=== PATIENT | female | born 1950 | race Caucasian/White ===

== ENCOUNTER → 2022-07-04 13:58 | Outpatient (BNVA) | payer MEDICARE, SELFPAY | PROVIDERS: PCP Family Medicine; Visit Provider Student in an Organized Health Care Education/Training Program | DX: M05.79 Rheumatoid arthritis with rheumatoid factor of multiple sites without organ or systems involvement (principal); M35.01 Sjogren syndrome with keratoconjunctivitis; Z11.59 Encounter for screening for other viral diseases; Z79.631 Long term (current) use of antimetabolite agent; Z11.7 Encounter for testing for latent tuberculosis infection | CPT/HCPCS: 99202 ==

== ENCOUNTER → 2022-09-16 09:01 | Outpatient (BNVA) | payer MEDICARE, SELFPAY | PROVIDERS: PCP Family Medicine; Visit Provider Student in an Organized Health Care Education/Training Program | DX: M05.79 Rheumatoid arthritis with rheumatoid factor of multiple sites without organ or systems involvement (principal); R06.02 Shortness of breath; Z79.631 Long term (current) use of antimetabolite agent; Z71.85 Encounter for immunization safety counseling | CPT/HCPCS: 99212 ==

== ENCOUNTER 2023-01-23 09:07 | Outpatient (AMB) | payer MEDICARE, SELFPAY ==
--- NOTE | 2023-01-23 09:13 | MHC.OFFVIS ---
Intake Vital Signs 01/23/23 09:14 Height 5 ft 5 in Weight 199 lb 8.293 oz BMI 33.2 BP 126/70 Blood Pressure Location Rt brachial Position Sitting Pulse 77 Pulse Source Pulse Oximeter Temp 97.3 F Temp Source Skin Pulse Oximetry (%) 98 Intake Visit Reasons: RA Intake Note: Pt seen today for 4 month RA follow up. Reports pain in knees, ankles and toes, pain progresses as day goes on. Corrosion Prevention Metal Sprayer Required: No Accompanied by: Self / Same As Patient Allergies ibuprofen Allergy (Intermediate, Verified 01/23/23 09:16) stomach ulcers leflunomide Allergy (Intermediate, Verified 01/23/23 09:16) neuropathy sulfasalazine Allergy (Intermediate, Verified 01/23/23 09:16) Fever Medication List - Last Reconciled 01/23/23 by Roque Barnhart MD amlodipine 2.5 mg PO DAILY betamethasone dipropionate 0.05% 1 appl topical DAILY PRN cholecalciferol (vitamin D3) 50 mcg PO DAILY cyclosporine 0.05% 1 drp ophthalmic (eye) Q12H folic acid 1 mg PO DAILY hydrochlorothiazide 12.5 mg PO DAILY levothyroxine 50 mcg PO DAILY lisinopril 40 mg PO DAILY methotrexate sodium 15 mg (6 x 2.5 mg) PO QWEEK multivitamin 1 tab PO DAILY omeprazole 20 mg PO DAILY pravastatin 40 mg PO DAILY spironolactone 25 mg PO DAILY HPI HPI Comments History of Present Illness Details 72-year-old female with seropositive RA returns for follow-up. She was evaluated by a logistics analyst for her left knee swollen. Arthrocentesis was performed and according to patient her doctor told her she did not have any signs of rheumatoid arthritis, gout or pseudogout. Steroid injection was done which gave her about 2 weeks relief. She had a left knee MRI done which showed a torn medial meniscus, she has an appointment with Orthopedics next month. Patient states that she feels well otherwise. States that the shortness of breath she complained of last visit self-resolved. Denies any cough. Initial history This is a 71-year-old female with a past medical history of rheumatoid arthritis who presents for evaluation. Her previous focuser left the practice. She was diagnosed in 2014. Symptoms mostly involved her ankles and feet. Per patient she has developed deformed left foot toes over the years. She was on multiple DMARDs (please see assessment) she was on leflunomide initially and did well with it however she developed neuropathy of her feet. She was evaluated by a neurologist and had an EMG which was normal and she was told she has a small fiber neuropathy. Neurontin did not help. Leflunomide was discontinued manage her neuropathy improved. She could not tolerate sulfasalazine. Cannot take Plaquenil due to retinal issues. She has been doing fairly well on methotrexate 4 tabs weekly. She was never on a higher dose of methotrexate. Patient stated that she had a UTI with fever about a month ago and was prescribed Levaquin with improvement of her UTI however she developed bilateral knee tendinitis which is slowly improving. Patient states that her RA have almost always affected her ankles, feet, toes, and knees. She has stiffness of her knees when she stands up after sitting down for some time. She has morning stiffness of her ankles and feet lasting a few minutes improved with walking. Denies any significant joint swelling. She stated she has had dry eyes for many years. She was on Restasis eyedrops for some time, currently she only uses artificial tears. She has intermittent dry mouth but it does not bother her too much. No history of Raynaud's. No history of DVT/PE. 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 Card Denies dyspnea Resp Denies cough and Denies dyspnea Musc Reports arthralgias, Reports joint swelling and Reports stiffness Physical Exam Vital Signs: Last Vital Signs Temp 97.3 F 01/23/23 09:14 Pulse 77 01/23/23 09:14 BP 126/70 01/23/23 09:14 Pulse Ox 98 01/23/23 09:14 BMI result Body Mass Index 33.2 Const General: cooperative and healthy appearing Nutritional Appearance: obese Orientation/consciousness: patient oriented x3 Limitations: no limitations HEENT Head: Yes normocephalic Mouth: moist mucous membranes Resp Effort & Inspection: normal respiratory effort and able to speak in complete sentences Auscultation: clear to auscultation bilaterally Cardio Rate: regular rate Rhythm: regular rhythm Heart sounds: S1 normal heart sound present and S2 normal heart sound present GI Inspection: No distended Palpation (GI): Soft to palpation and nontender Neuro General: patient oriented x3 Extrem Other: Osteoarthritic changes of both hands with prominent Etta's, Heberden's nodes and squaring of bilateral CMCs joints. No tender joints Normal nailfold capillaroscopy Left knee warmth and small effusion. + crepitus. Right knee pain with full flexion Left foot deformity with hammertoes No MTP joint tenderness bilaterally Negative MTP squeeze test bilaterally Results Reviewed Results Reviewed: Labs in 07/24 RF ++ YUE/SSA/SSB/C3/C4/Kandy-1/Sm/ESL PROFESSOR/CCP all negative/normal Hepatitis panel and T spot negative Labs from 01/2023 Normal CBC, CMP, ESR, CRP Uric acid 7.0 Assessment & Plan Assessment & Plan (1) Rheumatoid arthritis: Comment: Onset 2014 +RF -ve CCP leflunomide 2014, did well then stopped due to feet neuropathy, neuropathy improved after stopping Can not take Plaquenil due to retinal issues Could not tolerate sulfasalazine On methotrexate since 2020 10 mg , advanced to 20 mg weekly, reduced to 15 mg 09/2022 due to fatigue. effective Code(s): M06.9 - Rheumatoid arthritis, unspecified Qualifiers: Rheumatoid arthritis location: multiple sites Rheumatoid factor presence: with rheumatoid factor Qualified Code(s): M05.79 - Rheumatoid arthritis with rheumatoid factor of multiple sites without organ or systems involvement Plan: 72-year-old female with seropositive RA who presents for follow-up. Patient is in remission on methotrexate 15 mg weekly and folic acid 1 mg daily. Continue current meds. Will consider lowering methotrexate dose next visit Labs in 3 months and before next visit in 6 months infectious screening hepatitis panel and T spot-20 23 (2) skilled nursing methotrexate user: Code(s): Z79.631 - skilled nursing (current) use of antimetabolite agent Plan: Side effects of methotrexate were discussed with the patient in detail including oral ulcers, elevated LFTs, abdominal discomfort, and possible pancytopenia is. Will monitor patient for side effects with frequent lab work. Advised patient to take folic acid daily to prevent complications of methotrexate. (3) Shortness of breath: Code(s): R06.02 - Shortness of breath Plan: Shortness of breath self-resolved without any specific treatment (4) Screening for osteoporosis: Code(s): Z13.820 - Encounter for screening for osteoporosis Plan: Mentions that she had a bone density scan 2-3 years ago and it was unremarkable. Will consider repeating DEXA scan next visit. (5) Degenerative tear of left medial meniscus: Code(s): M23.204 - Derangement of unspecified medial meniscus due to old tear or injury, left knee Plan: Has a follow-up appointment with Orthopedic next month Plan I spent 29 minutes reviewing patient's chart, evaluating patient, ordering diagnostic workup, counseling patient and documenting in the chart Orders: Orders Comprehensive Met. Panel 6 Months Z79.631 - skilled nursing (current) use of antimetabolite agent C Reactive Protein 6 Months Z79.631 - buttermaker (current) use of antimetabolite agent Erythrocyte Sedimentation Rate 6 Months Z79.631 - skilled nursing (current) use of antimetabolite agent C Reactive Protein 3 Months M06.9 - Rheumatoid arthritis, unspecified Complete Blood Count Auto Diff 6 Months Z79.631 - skilled nursing (current) use of antimetabolite agent Complete Blood Count Auto Diff 3 Months M06.9 - Rheumatoid arthritis, unspecified Comprehensive Met. Panel 3 Months M06.9 - Rheumatoid arthritis, unspecified Erythrocyte Sedimentation Rate 3 Months M06.9 - Rheumatoid arthritis, unspecified Coding Level of Care Code Est Pt Level 4 (23880) Diagnoses Rheumatoid arthritis involving multiple sites with positive rheumatoid factor M05.79 Rheumatoid arthritis location: multiple sites Rheumatoid factor presence: with rheumatoid factor skilled nursing methotrexate user Z79.631 Shortness of breath R06.02 Screening for osteoporosis Z13.820 Degenerative tear of left medial meniscus M23.204
[2023-01-23 09:14] VITALS: BP 126/70; PULSE 77; TEMP 36.3; O2SAT 98; BMI 33.2
== END 2023-01-23 09:48 | disposition home or self-care (01) ==
PROVIDERS: PCP Family Medicine; Visit Provider Student in an Organized Health Care Education/Training Program
DX: M05.79 Rheumatoid arthritis with rheumatoid factor of multiple sites without organ or systems involvement (principal); Z79.631 Long term (current) use of antimetabolite agent; R06.02 Shortness of breath; Z13.820 Encounter for screening for osteoporosis; M23.204 Derangement of unspecified medial meniscus due to old tear or injury, left knee
CPT/HCPCS: 99214

== ENCOUNTER → 2023-01-23 09:07 | Outpatient (BNVA) | payer MEDICARE, SELFPAY | PROVIDERS: Visit Provider Student in an Organized Health Care Education/Training Program | DX: M05.79 Rheumatoid arthritis with rheumatoid factor of multiple sites without organ or systems involvement (principal); R06.02 Shortness of breath; M23.204 Derangement of unspecified medial meniscus due to old tear or injury, left knee; Z79.631 Long term (current) use of antimetabolite agent | CPT/HCPCS: 99212 ==

== ENCOUNTER 2023-07-23 09:22 | Outpatient (AMB) | payer MEDICARE, SELFPAY ==
--- NOTE | 2023-07-23 09:34 | A.OFFVIS_ITS ---
Intake Vital Signs 07/23/23 09:37 Height 5 ft 5 in Weight 197 lb 5.019 oz BMI 32.8 BP 134/62 Blood Pressure Location Rt brachial Position Sitting Pulse 62 Pulse Source Pulse Oximeter Pulse Oximetry (%) 97 Oxygen Delivery Method Room Air Intake Visit Reasons: RA/CONFIRMED Intake Note: Patient last seen 01/23/23 presents today for follow up and test results. Generator Man Required: No Accompanied by: Self / Same As Patient Allergies ibuprofen Allergy (Intermediate, Verified 07/23/23 09:42) stomach ulcers leflunomide Allergy (Intermediate, Verified 07/23/23 09:42) neuropathy sulfasalazine Allergy (Intermediate, Verified 07/23/23 09:42) Fever Medication List - Last Reconciled 07/23/23 by Roque Barnhart MD betamethasone dipropionate 0.05% 1 appl topical DAILY PRN cholecalciferol (vitamin D3) 50 mcg PO DAILY cyclosporine 0.05% 1 drp ophthalmic (eye) Q12H folic acid 1 mg PO DAILY NS levothyroxine 50 mcg PO DAILY lisinopril 40 mg PO DAILY methotrexate sodium 15 mg (6 x 2.5 mg) PO QWEEK multivitamin 1 tab PO DAILY omeprazole 20 mg PO DAILY pravastatin 40 mg PO DAILY spironolactone 25 mg PO DAILY HPI HPI Comments History of Present Illness Details 72-year-old female with seropositive RA returns for follow-up. She is on methotrexate 15 mg weekly and folic acid 1 mg daily. She states that she has been doing fairly well overall. About a month ago patient reduce her methotrexate to 5 tabs weekly, for about a month, she did physical therapy and did some stretching exercises for both her knees, the next day both knees became swollen, she can not tell whether this was related to physical activity versus lowering methotrexate dose. She went back to 15 mg weekly. Her left knee continues to be symptomatic and she will see an orthopedic surgeon very soon to consider left knee replaced Initial history This is a 71-year-old female with a past medical history of rheumatoid arthritis who presents for evaluation. Her previous supervisor show operations left the practice. She was diagnosed in 2014. Symptoms mostly involved her ankles and feet. Per patient she has developed deformed left foot toes over the years. She was on multiple DMARDs (please see assessment) she was on leflunomide initially and did well with it however she developed neuropathy of her feet. She was evaluated by a neurologist and had an EMG which was normal and she was told she has a small fiber neuropathy. Neurontin did not help. Leflunomide was discontinued manage her neuropathy improved. She could not tolerate sulfasalazine. Cannot take Plaquenil due to retinal issues. She has been doing fairly well on methotrexate 4 tabs weekly. She was never on a higher dose of methotrexate. Patient stated that she had a UTI with fever about a month ago and was prescribed Levaquin with improvement of her UTI however she developed bilateral knee tendinitis which is slowly improving. Patient states that her RA have almost always affected her ankles, feet, toes, and knees. She has stiffness of her knees when she stands up after sitting down for some time. She has morning stiffness of her ankles and feet lasting a few minutes improved with walking. Denies any significant joint swelling. She stated she has had dry eyes for many years. She was on Restasis eyedrops for some time, currently she only uses artificial tears. She has intermittent dry mouth but it does not bother her too much. No history of Raynaud's. No history of DVT/PE. 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[employer] [facility] [place] Reports arthralgias and Reports stiffness Physical Exam Vital Signs: Last Vital Signs Pulse 62 07/23/23 09:37 BP 134/62 07/23/23 09:37 Pulse Ox 97 07/23/23 09:37 Oxygen Delivery Method Room Air 07/23/23 09:37 BMI result Body Mass Index 32.8 Const General: cooperative and healthy appearing Nutritional Appearance: obese Orientation/consciousness: patient oriented x3 Limitations: no limitations HEENT Head: Yes normocephalic Mouth: moist mucous membranes Resp Effort & Inspection: normal respiratory effort and able to speak in complete sentences Auscultation: clear to auscultation bilaterally Cardio Rate: regular rate Rhythm: regular rhythm Heart sounds: S1 normal heart sound present and S2 normal heart sound present GI Inspection: No distended Palpation (GI): Soft to palpation and nontender Neuro General: patient oriented x3 Extrem Other: Osteoarthritic changes of both hands with prominent Etta's, Heberden's nodes and squaring of bilateral CMCs joints. No tender joints Normal nailfold capillaroscopy Left knee warmth and small effusion. + crepitus. Right knee pain with full flexion Left foot deformity with hammertoes No MTP joint tenderness bilaterally Negative MTP squeeze test bilaterally Results Reviewed Results Reviewed: Labs in 07/24 RF ++ YUE/SSA/SSB/C3/C4/Kandy-1/Sm/KRAFT MILL OPERATOR/CCP all negative/normal Hepatitis panel and T spot negative Labs from 01/2023 Normal CBC, CMP, ESR, CRP Uric acid 7.0 Assessment & Plan Assessment & Plan (1) Rheumatoid arthritis: Comment: Onset 2014 +RF -ve CCP leflunomide 2014, did well then stopped due to feet neuropathy, neuropathy improved after stopping Can not take Plaquenil due to retinal issues Could not tolerate sulfasalazine On methotrexate since 2020 10 mg , advanced to 20 mg weekly, reduced to 15 mg 09/2022 due to fatigue. effective Code(s): M06.9 - Rheumatoid arthritis, unspecified Qualifiers: Rheumatoid arthritis location: multiple sites Rheumatoid factor presence: with rheumatoid factor Qualified Code(s): M05.79 - Rheumatoid arthritis with rheumatoid factor of multiple sites without organ or systems involvement Plan: 72-year-old female with seropositive RA who presents for follow-up. Patient is in remission on methotrexate 15 mg weekly and folic acid 1 mg daily. Continue current meds. Will consider lowering methotrexate in the future. Labs in 3 months and before next visit in 6 months infectious screening hepatitis panel and T spot-20 (2) joint terminal attack controller methotrexate user: Code(s): Z79.631 - residential (current) use of antimetabolite agent Plan: Side effects of methotrexate were discussed with the patient in detail including oral ulcers, elevated LFTs, abdominal discomfort, and possible pancytopenia is. Will monitor patient for side effects with frequent lab work. Advised patient to take folic acid daily to prevent complications of methotrexate. (3) Screening for osteoporosis: Code(s): Z13.820 - Encounter for screening for osteoporosis Plan: Mentions that she had a bone density scan 2-3 years ago and it was unremarkable. She states that she will be evaluated for a Medicare wellness visit soon and a DEXA scan will be discussed (4) Degenerative tear of left medial meniscus: Code(s): M23.204 - Derangement of unspecified medial meniscus due to old tear or injury, left knee Plan: States that she has medial meniscus tear as well as left knee osteoarthritis, she states that she will be evaluated by a surgeon soon for knee replaced Plan I spent 29 minutes reviewing patient's chart, evaluating patient, ordering diagnostic workup, counseling patient and documenting in the chart Orders: Orders Comprehensive Met. Panel Today M06.9 - Rheumatoid arthritis, unspecified, Z79.631 - residential (current) use of antimetabolite agent C Reactive Protein Today M06.9 - Rheumatoid arthritis, unspecified, Z79.631 - residential (current) use of antimetabolite agent Complete Blood Count Auto Diff Today M06.9 - Rheumatoid arthritis, unspecified, Z79.631 - joint terminal attack controller (current) use of antimetabolite agent Complete Blood Count Auto Diff 10/21/23 M06.9 - Rheumatoid arthritis, unspecified, Z79.631 - residential (current) use of antimetabolite agent Complete Blood Count Auto Diff 01/19/24 M06.9 - Rheumatoid arthritis, unspecified, Z79.631 - joint terminal attack controller (current) use of antimetabolite agent Complete Blood Count Auto Diff 04/18/24 M06.9 - Rheumatoid arthritis, unspecified, Z79.631 - joint terminal attack controller (current) use of antimetabolite agent Comprehensive Met. Panel Today M06.9 - Rheumatoid arthritis, unspecified, Z79.631 - joint terminal attack controller (current) use of antimetabolite agent Comprehensive Met. Panel 10/21/23 M06.9 - Rheumatoid arthritis, unspecified, Z79.631 - joint terminal attack controller (current) use of antimetabolite agent Comprehensive Met. Panel 01/19/24 M06.9 - Rheumatoid arthritis, unspecified, Z79.631 - residential (current) use of antimetabolite agent Comprehensive Met. Panel 04/18/24 M06.9 - Rheumatoid arthritis, unspecified, Z79.631 - joint terminal attack controller (current) use of antimetabolite agent Erythrocyte Sedimentation Rate 10/21/23 M06.9 - Rheumatoid arthritis, unspecified, Z79.631 - residential (current) use of antimetabolite agent Erythrocyte Sedimentation Rate 04/18/24 M06.9 - Rheumatoid arthritis, unspecified, Z79.631 - joint terminal attack controller (current) use of antimetabolite agent Complete Blood Count Auto Diff Today M06.9 - Rheumatoid arthritis, unspecified, Z79.631 - joint terminal attack controller (current) use of antimetabolite agent Erythrocyte Sedimentation Rate Today M06.9 - Rheumatoid arthritis, unspecified, Z79.631 - residential (current) use of antimetabolite agent C Reactive Protein Today M06.9 - Rheumatoid arthritis, unspecified, Z79.631 - residential (current) use of antimetabolite agent C Reactive Protein 10/21/23 M06.9 - Rheumatoid arthritis, unspecified, Z79.631 - residential (current) use of antimetabolite agent C Reactive Protein 01/19/24 M06.9 - Rheumatoid arthritis, unspecified, Z79.631 - joint terminal attack controller (current) use of antimetabolite agent C Reactive Protein 04/18/24 M06.9 - Rheumatoid arthritis, unspecified, Z79.631 - residential (current) use of antimetabolite agent Erythrocyte Sedimentation Rate Today M06.9 - Rheumatoid arthritis, unspecified, Z79.631 - residential (current) use of antimetabolite agent Erythrocyte Sedimentation Rate 01/19/24 M06.9 - Rheumatoid arthritis, unspecified, Z79.631 - residential (current) use of antimetabolite agent Coding Level of Care Code Est Pt Level 4 (53648) Diagnoses Rheumatoid arthritis involving multiple sites with positive rheumatoid factor M05.79 Rheumatoid arthritis location: multiple sites Rheumatoid factor presence: with rheumatoid factor joint terminal attack controller methotrexate user Z79.631 Screening for osteoporosis Z13.820 Degenerative tear of left medial meniscus M23.204
[2023-07-23 09:37] VITALS: BP 134/62; PULSE 62; O2SAT 97; BMI 32.8
== END 2023-07-23 10:15 | disposition home or self-care (01) ==
PROVIDERS: PCP Family Medicine; Visit Provider Student in an Organized Health Care Education/Training Program
DX: M05.79 Rheumatoid arthritis with rheumatoid factor of multiple sites without organ or systems involvement (principal); Z79.631 Long term (current) use of antimetabolite agent; Z13.820 Encounter for screening for osteoporosis; M23.204 Derangement of unspecified medial meniscus due to old tear or injury, left knee
CPT/HCPCS: 99214

== ENCOUNTER → 2023-07-23 09:22 | Outpatient (BNVA) | payer MEDICARE, SELFPAY | PROVIDERS: PCP Family Medicine; Visit Provider Student in an Organized Health Care Education/Training Program | DX: M05.79 Rheumatoid arthritis with rheumatoid factor of multiple sites without organ or systems involvement (principal); M23.204 Derangement of unspecified medial meniscus due to old tear or injury, left knee; Z13.820 Encounter for screening for osteoporosis; Z79.631 Long term (current) use of antimetabolite agent | CPT/HCPCS: 99212 ==

== ENCOUNTER 2024-03-15 09:24 | Outpatient (AMB) | payer MEDICARE, SELFPAY ==
--- NOTE | 2024-03-15 09:30 | A.OFFVIS_ITS ---
Vital Signs 03/15/24 09:36 Height 5 ft 5 in Weight 205 lb 14.588 oz BMI 34.3 BP 115/64 Blood Pressure Location Rt brachial Position Sitting Pulse 72 Pulse Source Pulse Oximeter Pulse Oximetry (%) 98 Oxygen Delivery Method Room Air Intake Visit Reasons: RA/cm Intake Note: Patient presents for RA. Allergies ibuprofen Allergy (Intermediate, Verified 03/15/24 09:33) stomach ulcers leflunomide Allergy (Intermediate, Verified 03/15/24 09:33) neuropathy sulfasalazine Allergy (Intermediate, Verified 03/15/24 09:33) Fever Medication List - Last Reconciled 03/15/24 by Roque Barnhart MD betamethasone dipropionate 0.05% 1 appl topical DAILY PRN cholecalciferol (vitamin D3) 50 mcg PO DAILY cyclosporine 0.05% 1 drp ophthalmic (eye) Q12H folic acid 1 mg PO DAILY NS levothyroxine 50 mcg PO DAILY lisinopril 40 mg PO DAILY methotrexate sodium 12.5 mg (5 x 2.5 mg) PO QWEEK multivitamin 1 tab PO DAILY omeprazole 20 mg PO DAILY pravastatin 40 mg PO DAILY spironolactone 25 mg PO DAILY HPI Comments Details: 73-year-old female with seropositive RA returns for follow-up. She is on methotrexate 15 mg weekly and folic acid 1 mg daily. She states that she has been doing fairly well overall. She had her right knee replaced about 8 weeks ago. She just finished physical therapy. She states that she is improving. She is able to get what she needs done but does everything slowly. Initial history This is a 71-year-old female with a past medical history of rheumatoid arthritis who presents for evaluation. Her previous spout worker left the practice. She was diagnosed in 2014. Symptoms mostly involved her ankles and feet. Per patient she has developed deformed left foot toes over the years. She was on multiple DMARDs (please see assessment) she was on leflunomide initially and did well with it however she developed neuropathy of her feet. She was evaluated by a neurologist and had an EMG which was normal and she was told she has a small fiber neuropathy. Neurontin did not help. Leflunomide was discontinued manage her neuropathy improved. She could not tolerate sulfasalazine. Cannot take Plaquenil due to retinal issues. She has been doing fairly well on methotrexate 4 tabs weekly. She was never on a higher dose of methotrexate. Patient stated that she had a UTI with fever about a month ago and was prescribed Levaquin with improvement of her UTI however she developed bilateral knee tendinitis which is slowly improving. Patient states that her RA have almost always affected her ankles, feet, toes, and knees. She has stiffness of her knees when she stands up after sitting down for some time. She has morning stiffness of her ankles and feet lasting a few minutes improved with walking. Denies any significant joint swelling. She stated she has had dry eyes for many years. She was on Restasis eyedrops for some time, currently she only uses artificial tears. She has intermittent dry mouth but it does not bother her too much. No history of Raynaud's. No history of DVT/PE. [facility] Medical History H/O hyperthyroidism Rheumatoid arthritis Esophagitis Essential hypertension Idiopathic peripheral neuropathy Anxiety Gout Hyperlipidemia Multinodular goiter Basal cell carcinoma Surgical History (Updated 03/15/24 @ 10:02 by Roque Barnhart MD) History of total right knee replacement History of left knee replacement Family History Mother Breast cancer Essential hypertension Sister Essential hypertension Hyperthyroidism Father Essential hypertension Paternal Grandmother Rheumatoid arthritis Social History Household Members: Other Household Members Other:: sister Alcohol intake: current Patient Tobacco Use Status: Never used Tobacco 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 Reproductive History Menstrual Total pregnancies: 2 Number of Living Children: 2 Review of Systems Musc Denies arthralgias, Denies joint swelling and Reports stiffness Physical Exam Vital Signs: Last Vital Signs Pulse 72 03/15/24 09:36 BP 115/64 03/15/24 09:36 Pulse Ox 98 03/15/24 09:36 Oxygen Delivery Method Room Air 03/15/24 09:36 BMI result Body Mass Index 34.3 Const General: cooperative and healthy appearing Nutritional Appearance: obese Orientation/consciousness: patient oriented x3 Limitations: no limitations HEENT Head: Yes normocephalic Mouth: moist mucous membranes Resp Effort & Inspection: normal respiratory effort and able to speak in complete sentences Auscultation: clear to auscultation bilaterally Cardio Rate: regular rate Rhythm: regular rhythm GI Inspection: No distended Palpation (GI): Soft to palpation and nontender Neuro General: patient oriented x3 Extrem Other: Osteoarthritic changes of both hands with prominent Etta's, Heberden's nodes and squaring of bilateral CMCs joints. No tender joints Normal bilateral hand admissions specialist strength Normal nailfold capillaroscopy S/p right knee replacement Left foot deformity with hammertoes No MTP joint tenderness bilaterally Negative MTP squeeze test bilaterally Assessment & Plan Assessment & Plan (1) Rheumatoid arthritis: Comment: Onset 2014 +RF -ve CCP leflunomide 2014, did well then stopped due to feet neuropathy, neuropathy improved after stopping Can not take Plaquenil due to retinal issues Could not tolerate sulfasalazine On methotrexate since 2020 10 mg , advanced to 20 mg weekly, reduced to 15 mg 09/2022 due to fatigue. effective Code(s): M06.9 - Rheumatoid arthritis, unspecified Category: Medical Qualifiers: Rheumatoid arthritis location: multiple sites Rheumatoid factor presence: with rheumatoid factor Qualified Code(s): M05.79 - Rheumatoid arthritis with rheumatoid factor of multiple sites without organ or systems involvement Plan: 73-year-old female with seropositive RA who presents for follow-up. Patient is in remission on methotrexate 15 mg weekly and folic acid 1 mg daily. 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 Will monitor patient for side effects with frequent lab work. Advised patient to take folic acid daily to prevent com plications of methotrexate. (3) Screening for osteoporosis: Code(s): Z13.820 - Encounter for screening for osteoporosis Category: Medical Plan: Mentions that she had a bone density scan 2-3 years ago and it was unremarkable. Advised patient that she needs a repeat DEXA scan to monitor her bone density. She will discuss with her PCP (4) Immunization counseling: Code(s): Z71.85 - Encounter for immunization safety counseling Category: Medical Plan: Received flu vaccine and COVID booster for this season. Advised patient to get the RSV vaccine. Skip 2 doses of methotrexate afterwards Plan I spent 29 minutes reviewing patient's chart, evaluating patient, ordering diagnostic workup, counseling patient and documenting in the chart Orders: Orders Erythrocyte Sedimentation Rate 3 Months M05.79 - Rheumatoid arthritis with rheumatoid factor of multiple sites without organ or systems involvement, Z79.631 - senior care (current) use of antimetabolite agent Complete Blood Count Auto Diff 06/15/24 M05.79 - Rheumatoid arthritis with rheumatoid factor of multiple sites without organ or systems involvement, Z7 9.631 - senior care (current) use of antimetabolite agent Complete Blood Count Auto Diff 09/13/24 M05.79 - Rheumatoid arthritis with rheumatoid factor of multiple sites without organ or systems involvement, Z79.631 - long term care administrator (current) use of antimetabolite agent Complete Blood Count Auto Diff 03/12/25 M05.79 - Rheumatoid arthritis with rheumatoid factor of multiple sites without organ or systems involvement, Z79.631 - senior care (current) use of antimetabolite agent Comprehensive Met. Panel 06/15/24 M05.79 - Rheumatoid arthritis with rheumatoid factor of multiple sites without organ or systems involvement, Z79.631 - senior care (current) use of antimetabolite agent C Reactive Protein 06/15/24 M05.79 - Rheumatoid arthritis with rheumatoid factor of multiple sites without organ or systems involvement, Z79.631 - senior care (current) use of antimetabolite agent C Reactive Protein 12/12/24 M05.79 - Rheumatoid arthritis with rheumatoid factor of multiple sites without organ or systems involvement, Z79.631 - senior care (current) use of antimetabolite agent Erythrocyte Sedimentation Rate 12/12/24 M05.79 - Rheumatoid arthritis with rheumatoid factor of multiple sites without organ or systems involvement, Z79.631 - long term care administrator (current) use of antimetabolite agent Complete Blood Count Auto Diff 3 Months M05.79 - Rheumatoid arthritis with rheumatoid factor of multiple sites without organ or systems involvement, Z79.631 - senior care (current) use of antimetabolite agent Comprehensive Met. Panel 3 Months M05.79 - Rheumatoid arthritis with rheumatoid factor of multiple sites without organ or systems involvement, Z79.631 - long term care administrator (current) use of antimetabolite agent C Reactive Protein 3 Months M05.79 - Rheumatoid arthritis with rheumatoid factor of multiple sites without organ or systems involvement, Z79.631 - senior care (current) use of antimetabolite agent Complete Blood Count Auto Diff 12/12/24 M05.79 - Rheumatoid arthritis with rheumatoid factor of multiple sites without organ or systems involvement, Z79.631 - senior care (current) use of antimetabolite agent Comprehensive Met. Panel 09/13/24 M05.79 - Rheumatoid arthritis with rheumatoid factor of multiple sites without organ or systems involvement, Z79.631 - long term care administrator (current) use of antimetabolite agent Comprehensive Met. Panel 12/12/24 M05.79 - Rheumatoid arthritis with rheumatoid factor of multiple sites without organ or systems involvement, Z79.631 - long term care administrator (current) use of antimetabolite agent Comprehensive Met. Panel 03/12/25 M05.79 - Rheumatoid arthritis with rheumatoid factor of multiple sites without organ or systems involvement, Z79.631 - long term care administrator (current) use of antimetabolite agent C Reactive Protein 09/13/24 M05.79 - Rheumatoid arthritis with rheumatoid factor of multiple sites without organ or systems involvement, Z79.631 - long term care administrator (current) use of antimetabolite agent C Reactive Protein 03/12/25 M05.79 - Rheumatoid arthritis with rheumatoid factor of multiple sites without organ or systems involvement, Z79.631 - senior care (current) use of antimetabolite agent Erythrocyte Sedimentation Rate 06/15/24 M05.79 - Rheumatoid arthritis with rheumatoid factor of multiple sites without organ or systems involvement, Z79.631 - long term care administrator (current) use of antimetabolite agent Erythrocyte Sedimentation Rate 09/13/24 M05.79 - Rheumatoid arthritis with rheumatoid factor of multiple sites without organ or systems involvement, Z79.631 - long term care administrator (current) use of antimetabolite agent Erythrocyte Sedimentation Rate 03/12/25 M05.79 - Rheumatoid arthritis with rheumatoid factor of multiple sites without organ or systems involvement, Z79.631 - senior care (current) use of antimetabolite agent Medications: Changed From methotrexate sodium 15 mg (6 x 2.5 mg) PO QWEEK 72 tabs 0RF M05.79 - Rheumatoid arthritis with rheumatoid factor of multiple sites without organ or systems involvement To methotrexate sodium 12.5 mg (5 x 2.5 mg) PO QWEEK 65 tabs 1RF M05.79 - Rhe umatoid arthritis with rheumatoid factor of multiple sites without organ or systems involvement Coding Level of Care Code Est Pt Level 4 (79353) Complex EM visit Add On G2211 Diagnoses Rheumatoid arthritis involving multiple sites with positive rheumatoid factor M05.79 Rheumatoid arthritis location: multiple sites Rheumatoid factor presence: with rheumatoid factor senior care methotrexate user Z79.631 Screening for osteoporosis Z13.820 Immunization counseling Z71.85
[2024-03-15 09:36] VITALS: BP 115/64; PULSE 72; O2SAT 98; BMI 34.3
== END 2024-03-15 09:57 | disposition home or self-care (01) ==
PROVIDERS: PCP Family Medicine; Visit Provider Student in an Organized Health Care Education/Training Program
DX: M05.79 Rheumatoid arthritis with rheumatoid factor of multiple sites without organ or systems involvement (principal); Z79.631 Long term (current) use of antimetabolite agent; Z13.820 Encounter for screening for osteoporosis; Z71.85 Encounter for immunization safety counseling
CPT/HCPCS: 99214; G2211

== ENCOUNTER → 2024-03-15 09:24 | Outpatient (BNVA) | payer MEDICARE, SELFPAY | PROVIDERS: PCP Family Medicine; Visit Provider Student in an Organized Health Care Education/Training Program | DX: M05.79 Rheumatoid arthritis with rheumatoid factor of multiple sites without organ or systems involvement (principal); Z79.631 Long term (current) use of antimetabolite agent; Z13.820 Encounter for screening for osteoporosis; Z71.85 Encounter for immunization safety counseling | CPT/HCPCS: 99212 ==

== ENCOUNTER 2024-09-12 08:46 | Outpatient (AMB) | payer MEDICARE, SELFPAY ==
--- NOTE | 2024-09-12 08:48 | MHC.OFFVIS ---
Vital Signs 09/12/24 08:54 Height 5 ft 5 in Weight 213 lb 2.992 oz BMI 35.5 BP 132/80 Blood Pressure Location Lt brachial Position Sitting Respiration 16 Pulse 77 Pulse Source Pulse Oximeter Pulse Oximetry (%) 98 Oxygen Delivery Method Room Air Intake Visit Reasons: RA Intake Note: Patient presents for RA follow up. Allergies ibuprofen Allergy (Intermediate, Verified 09/12/24 08:53) stomach ulcers leflunomide Allergy (Intermediate, Verified 09/12/24 08:53) neuropathy sulfasalazine Allergy (Intermediate, Verified 09/12/24 08:53) Fever Medication List - Last Reconciled 09/12/24 by Brandy Roberson MD betamethasone dipropionate 0.05% 1 appl topical DAILY PRN cholecalciferol (vitamin D3) 50 mcg PO DAILY cyclosporine 0.05% 1 drp ophthalmic (eye) Q12H folic acid 1 mg PO DAILY NS levothyroxine 50 mcg PO DAILY lisinopril 40 mg PO DAILY methotrexate sodium 12.5 mg (5 x 2.5 mg) PO QWEEK multivitamin 1 tab PO DAILY omeprazole 20 mg PO DAILY pravastatin 40 mg PO DAILY spironolactone 25 mg PO DAILY HPI Comments Details: Patient is a 73-year-old female with hypothyroidism, hypertension, hyperlipidemia, GERD, polyarticular osteoarthritis (knee: s/p right knee replacement in 2023 and s/p left knee replacement in 2021, hands) and seropositive rheumatoid arthritis here today for follow up Interval History: Patient last seen 03/15/[address] Barnhart. At that time she was following up for her seropositive rheumatoid arthritis. She was on methotrexate 15 mg weekly and folic acid 1 mg daily reporting that she was doing well overall. No evidence of synovitis on examination, she was determined to be in remission and her methotrexate was reduced from 15 to 12.5 mg. Today, Continues to do well. No change in symptoms with the decrease in methotrexate Currently has IT band tendonitis on the right which she is doing stretches and PT for Rheumatologic History: Onset 2014 +RF -ve CCP leflunomide 2014, did well then stopped due to feet neuropathy, neuropathy improved after stopping Can not take Plaquenil due to retinal issues Could not tolerate sulfasalazine On methotrexate since 2020 10 mg , advanced to 20 mg weekly, reduced to 15 mg 09/2022 due to fatigue. effective Initial history: Patient was initially seen back in 2020 for evaluation of polyarthralgias in the setting of a positive double-stranded DNA. Exam at that time was consistent with fibromyalgia. Patient notes that she has actually been diagnosed with fibromyalgia since 2007. Since then she has been maintained on a cocktail of pregabalin and duloxetine. However over the years she has noticed worsening of her pain to the point where she feels like she can not take care of her 3 young children. And she is here today for management. Denies rashes, photosensitivity, alopecia, oral/nasal ulcers, sicca symptoms, lymphadenopathy, chest pain/shortness of breath, inflammatory type joint pain, foamy urine, lower extremity edema, muscle weakness, Raynaud's Also denies history of seizure, CVA, psychosis, history of kidney problems, history of cytopenias, history of VTE including PE or DVTs OB History: No history of recurrent miscarriages Current Rheumatology Medication(s): Methotrexate 12.5mg weekly Folic acid 1mg daily PFSH Medical History H/O hyperthyroidism Rheumatoid arthritis Esophagitis Essential hypertension Idiopathic peripheral neuropathy Anxiety Gout Hyperlipidemia Multinodular goiter Basal cell carcinoma Surgical History (Updated 03/15/24 @ 10:02 by Roque Barnhart MD) History of total right knee replacement History of left knee replacement Family History Mother Breast cancer Essential hypertension Sister Essential hypertension Hyperthyroidism Father Essential hypertension Paternal Grandmother Rheumatoid arthritis Social History Household Members: Other Household Members Other:: sister Alcohol intake: current Patient Tobacco Use Status: Never used Tobacco Current occupational status: retired 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 Const Details: Review of Systems Constitutional: Denies fever, chills, weight loss ENT: Denies vision changes, eye pain or eye redness, dental caries, dry mouth GI: Denies nausea, vomiting, diarrhea, abdominal pain, change in BM Pulm: Denies SOB, ALEGRIA, hemoptysis, wheezing Cards: Denies chest pain, palpitations Skin: Denies Raynaud's, rash, nail changes, photosensitivity, INSTRUMENTATION SUPERVISOR: Denies headaches, weakness, paresthesias, recurrent falls MSK: as per HPI All other systems reviewed and are unremarkable except noted above Physical Exam Vital signs reviewed Physical Examination CONSTITUITIONAL Patient alert and cooperative. Well appearing and in no apparent painful distress HEENT Conjunctiva and sclera clear. ?Pupils equal round and reactive to light. ?No lymphadenopathy. ? CHEST/RESPIRATORY SYSTEM Normal respiratory effort and able to speak in complete sentences. ?Clear to auscultation bilaterally. ?No crackles, rales, rhonchi, wheezes heard. CARDIAC SYSTEM Regular rate and rhythm. ?S1 and S2 heard no murmurs. ?Radial pulses intact bilaterally MSK Hands: ?Able to make a fist. No synovitis noted to the MCPs, PIPs or DIPs. ?No tenderness to palpation of these joints. No deformities noted. ? Wrists: ?Full range of motion at the wrists without pain. ?No tenderness to palpation or synovitis noted to the wrists. Elbows: Full range of motion without pain. No tenderness, weakness, swelling, increased warmth or erythema. Shoulders: Full range of active range of motion without pain. No tenderness, weakness, swelling, increased warmth or erythema. Hips: Full range of motion without pain. Hip bursa: No tenderness to palpation Knees: ?Full range of motion. ?No tenderness, swelling, increased warmth or erythema.?No effusion or crepitations Ankles: Full range of motion. ?No tenderness, swelling, increased warmth or erythema.? Feet: ?Negative squeeze test. ?No tenderness to palpation or swelling of the MTPs. Tender points:?No tenderness to palpation of the bilateral trapezius, supraspinatus, greater trochanters, anterior costochondral junctions, bilateral gluteal areas, bilateral suboccipital muscle insertions SKIN Skin intact without rashes. Results Reviewed Results Reviewed: Labs reviewed from [facility] 08/31/24 WBC 3.91 HB 12.7 HCT 40 Platelets 264 ESR 12 CRP 4.0 Creatinine 1.0 GFR 59.5 AST 21 ALT 46 T spot and hepatitis panel negative 08/2024 Bone density 07/2024 at [facility]: Normal (as per patient, numbers not seen) Assessment & Plan Assessment & Plan (1) Rheumatoid arthritis: Comment: Onset 2014 +RF -ve CCP leflunomide 2014, did well then stopped due to feet neuropathy, neuropathy improved after stopping Can not take Plaquenil due to retinal issues Could not tolerate sulfasalazine On methotrexate since 2020 10 mg , advanced to 20 mg weekly, reduced to 15 mg 09/2022 due to fatigue. effective Code(s): M06.9 - Rheumatoid arthritis, unspecified Category: Medical Qualifiers: Rheumatoid arthritis location: multiple sites Rheumatoid factor presence: with rheumatoid factor Qualified Code(s): M05.79 - Rheumatoid arthritis with rheumatoid factor of multiple sites without organ or systems involvement Plan: #Seropositive RA Patient is a 73-year-old female with seropositive rheumatoid arthritis here today for follow up. Currently in remission on methotrexate. We will try to decrease methotrexate to 10mg weekly Plan - Methotrexate 10mg weekly - Folic acid 1mg daily - RTC 6 months - Labs in 4 months: CBC, CMP, ESR, CRP (2) [facility] methotrexate user: Code(s): Z79.631 - [facility] (current) use of antimetabolite agent Category: Medical Plan: #Long-term Current Use of Methotrexate Discussed with patient the benefits and risks of methotrexate for managing their rheumatic condition Benefits include reduced pain, reduced mortality, maintenance of remission and reduction of flares Risks include oral ulcers, photosensitivity, hepatotoxicity, hematologic toxicity, pneumonitis, flu-like symptoms (especially day after administration), nodulosis, lymphomas ? Limit alcohol and avoid Bactrim ? Monitoring: ?CBC, BMP, LFTs every 3-4 months and hepatitis serologies as needed Plan I spent 20 minutes reviewing the record and labs, taking a history, examining the patient, discussing the treatment plan, ordering diagnostic work up and documenting in the medical record Orders: Orders Comprehensive Met. Panel 4 Months - Rheumatoid arthritis with rheumatoid factor of multiple sites without organ or systems involvement Erythrocyte Sedimentation Rate 4 Months - Rheumatoid arthritis with rheumatoid factor of multiple sites without organ or systems involvement Complete Blood Count Auto Diff 4 Months - Rheumatoid arthritis with rheumatoid factor of multiple sites without organ or systems involvement C Reactive Protein 4 Months - Rheumatoid arthritis with rheumatoid factor of multiple sites without organ or systems involvement Medications: Changed From methotrexate sodium 12.5 mg (5 x 2.5 mg) PO QWEEK 65 tabs 1RF M05.79 - Rheumatoid arthritis with rheumatoid factor of multiple sites without organ or systems involvement To methotrexate sodium 10 mg (4 x 2.5 mg) PO QWEEK 90 days 52 tabs 1RF M0.79 - Rheumatoid arthritis with rheumatoid factor of multiple sites without organ or systems involvement Refilled folic acid 1 mg PO DAILY 90 tabs 1RF NS M05.79 - Rheumatoid arthritis with rheumatoid factor of multiple sites without organ or systems involvement Coding Level of Care Code Est Pt Level 3 (34880) Complex EM visit Add On G2211 Diagnoses Rheumatoid arthritis involving multiple sites with positive rheumatoid factor M05.79 Rheumatoid arthritis location: multiple sites Rheumatoid factor presence: with rheumatoid 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
[2024-09-12 08:54] VITALS: BP 132/80; PULSE 77; RESP 16; O2SAT 98; BMI 35.5
== END 2024-09-12 09:11 | disposition home or self-care (01) ==
LOC: HO.RHE 08:46
PROVIDERS: PCP Family Medicine; Visit Provider Student in an Organized Health Care Education/Training Program
DX: M05.79 Rheumatoid arthritis with rheumatoid factor of multiple sites without organ or systems involvement (principal); Z79.631 Long term (current) use of antimetabolite agent
CPT/HCPCS: 99213; G2211

== ENCOUNTER → 2024-09-12 08:46 | Outpatient (BNVA) | payer MEDICARE, SELFPAY | PROVIDERS: PCP Family Medicine; Visit Provider Student in an Organized Health Care Education/Training Program | DX: M05.79 Rheumatoid arthritis with rheumatoid factor of multiple sites without organ or systems involvement (principal); Z96.653 Presence of artificial knee joint, bilateral; Z79.631 Long term (current) use of antimetabolite agent | CPT/HCPCS: 99212 ==